=== PATIENT | male | born 1995 | race Two or more races ===

== ENCOUNTER → 2018-12-22 | Outpatient (REF) | payer MEDICAID, OTHER ==
[2018-12-22 15:47] LABS: APPEARANCE, URINE CLEAR (CLEAR); BACTERIA, URINE AUTO NEGATIVE (NEGATIVE); BILIRUBIN, URINE AUTO NEGATIVE (NEGATIVE); BLOOD, URINE BLOOD NEGATIVE (NEGATIVE); COLOR, URINE YELLOW (YELLOW); GLUCOSE, URINE (UA) AUTO NEGATIVE (NEGATIVE); KETONE, URINE AUTO NEGATIVE (NEGATIVE); LEUKOCYTE ESTERASE, URINE AUTO NEGATIVE (NEGATIVE); MUCUS, URINE SMALL (NEGATIVE); NITRITE, URINE AUTO NEGATIVE (NEGATIVE); PROTEIN, URINE AUTO NEGATIVE (NEGATIVE); RBC, URINE AUTO 4 /HPF (0-3); SPECIFIC GRAVITY URINE AUTO 1.017 (1.002-1.035); SQUAMOUS EPITHELIAL CELL UR AU 0 /HPF (0-6); UROBILINOGEN, URINE AUTO 0.2 mg/dL (0.0-2.0); WBC, URINE AUTO 0 /HPF (0-3)
[2018-12-22 15:56] LABS: ALBUMIN 4.4 GM/DL (3.2-5.2); ALT/SGPT 83 U/L (12-78); BILIRUBIN,TOTAL 1.1 MG/DL (0.2-1.0); BLOOD UREA NITROGEN 13 MG/DL (7-18); CARBON DIOXIDE LEVEL 31 MEQ/L (21-32); CHLORIDE LEVEL 101 MEQ/L (98-107); CREATININE FOR GFR 0.95 MG/DL (0.70-1.30); GLOMERULAR FILTRATION RATE > 60.0 (>60); GLUCOSE, FASTING 80 MG/DL (70-100); SODIUM LEVEL 138 MEQ/L (136-145); TOTAL PROTEIN 8.4 GM/DL (6.4-8.2)
[2018-12-23 11:25] LABS: HEPATITIS B SURFACE ANTIBODY POSITIVE (POSITIVE)
[2018-12-23 11:36] LABS: HEPATITIS B SURFACE ANTIGEN NEGATIVE (NEGATIVE)
[2018-12-23 12:05] LABS: HEPATITIS B CORE ANTIBODY IGM NEGATIVE (NEGATIVE)
[2018-12-28 00:08] LABS: % CD8 Pos Lymph 52.1 % (12.0-35.5); %CD4 Pos Lymphs 22.2 % (30.8-58.5); ABS Eosinophils 0.2 x10E3/uL (0.0-0.4); ABS Lymphs 1.7 x10E3/uL (0.7-3.1); ABS Monocytes 0.4 x10E3/uL (0.1-0.9); ABS Neutophils 5.6 x10E3/uL (1.4-7.0); Abs CD4 Helper 377 /uL (359-1519); Abs CD8 Suppres 886 /uL (109-897); CD4/CD8 Ratio 0.43 (0.92-3.72); Eosinophils 3 % (Not Estab.); HCT 48.7 % (37.5-51.0); HEPATITIS A IgG TOTAL Positive (Negative); HEPATITIS C VIRUS GENOTYPE 1b (.); HGB 16.4 g/dL (13.0-17.7); HSV TYPE II IgG SPECIFIC 6.82 index (0.00-0.90); Immature Grans 0 % (Not Estab.); Lymphocytes 21 % (Not Estab.); MCH 31.3 pg (26.6-33.0); MCHC 33.7 g/dL (31.5-35.7); MCV 93 fL (79-97); Monocytes 5 % (Not Estab.); Neutrophils 71 % (Not Estab.); Platelets 319 x10E3/uL (150-450); RBC 5.24 x10E6/uL (4.14-5.80); RDW 13.7 % (12.3-15.4); WBC 7.9 x10E3/uL (3.4-10.8)
== END ==
LOC: M SFHCPLAZ 13:04
PROVIDERS: ATTEND Internal Medicine Infectious Disease
DX: B20 Human immunodeficiency virus [HIV] disease (principal); B18.2 Chronic viral hepatitis C

== ENCOUNTER → 2019-01-16 | Outpatient (REF) | payer OTHER, MEDICAID ==
[2019-01-16 14:46] LABS: ALBUMIN 4.2 GM/DL (3.2-5.2); ALT/SGPT 109 U/L (12-78); BILIRUBIN,TOTAL 0.5 MG/DL (0.2-1.0); BLOOD UREA NITROGEN 17 MG/DL (7-18); CALCIUM LEVEL 9.5 MG/DL (8.5-10.1); CARBON DIOXIDE LEVEL 31 MEQ/L (21-32); CHLORIDE LEVEL 103 MEQ/L (98-107); CREATININE FOR GFR 0.97 MG/DL (0.70-1.30); GLOMERULAR FILTRATION RATE > 60.0 (>60); GLUCOSE, FASTING 85 MG/DL (70-100); POTASSIUM SERUM 4.3 MEQ/L (3.5-5.1); SODIUM LEVEL 138 MEQ/L (136-145); TOTAL PROTEIN 8.4 GM/DL (6.4-8.2)
[2019-01-19 00:16] LABS: % CD8 Pos Lymph 49.6 % (12.0-35.5); %CD4 Pos Lymphs 23.9 % (30.8-58.5); ABS Eosinophils 0.2 x10E3/uL (0.0-0.4); ABS Lymphs 2.4 x10E3/uL (0.7-3.1); ABS Monocytes 0.5 x10E3/uL (0.1-0.9); ABS Neutophils 1.3 x10E3/uL (1.4-7.0); Abs CD4 Helper 574 /uL (359-1519); Abs CD8 Suppres 1190 /uL (109-897); CD4/CD8 Ratio 0.48 (0.92-3.72); Eosinophils 4 % (Not Estab.); HCT 46.3 % (37.5-51.0); HEPATITIS C QUANTITATION 321420 IU/mL (.); HGB 16.8 g/dL (13.0-17.7); HIV-1 RNA PCR QUANT 2 LC550285 40 copies/mL (.); HIV-1 RNA PCR QUANT 3 LC550285 1.602 (.); Immature Grans 0 % (Not Estab.); Lymphocytes 55 % (Not Estab.); MCH 31.3 pg (26.6-33.0); MCHC 36.3 g/dL (31.5-35.7); MCV 86 fL (79-97); Monocytes 11 % (Not Estab.); Neutrophils 30 % (Not Estab.); Platelets 306 x10E3/uL (150-450); RBC 5.36 x10E6/uL (4.14-5.80); RDW 14.3 % (12.3-15.4); WBC 4.3 x10E3/uL (3.4-10.8)
== END ==
LOC: M SFHCPLAZ 13:18
PROVIDERS: ATTEND Internal Medicine Infectious Disease
DX: B20 Human immunodeficiency virus [HIV] disease (principal); B18.2 Chronic viral hepatitis C

== ENCOUNTER → 2019-03-16 | Outpatient (REF) | payer MEDICAID, OTHER ==
[2019-03-16 16:06] LABS: ALBUMIN 4.3 GM/DL (3.2-5.2); ALT/SGPT 115 U/L (12-78); BILIRUBIN,TOTAL 0.4 MG/DL (0.2-1.0); BLOOD UREA NITROGEN 16 MG/DL (7-18); CALCIUM LEVEL 8.7 MG/DL (8.5-10.1); CARBON DIOXIDE LEVEL 30 MEQ/L (21-32); CHLORIDE LEVEL 103 MEQ/L (98-107); CREATININE FOR GFR 0.96 MG/DL (0.70-1.30); GLOMERULAR FILTRATION RATE > 60.0 (>60); GLUCOSE, FASTING 81 MG/DL (70-100); POTASSIUM SERUM 4.2 MEQ/L (3.5-5.1); SODIUM LEVEL 138 MEQ/L (136-145); TOTAL PROTEIN 8.2 GM/DL (6.4-8.2)
[2019-03-21 00:10] LABS: %CD4 Pos Lymphs 26.2 % (30.8-58.5); ABS Eosinophils 0.1 x10E3/uL (0.0-0.4); ABS Lymphs 2.7 x10E3/uL (0.7-3.1); ABS Monocytes 0.6 x10E3/uL (0.1-0.9); ABS Neutophils 2.6 x10E3/uL (1.4-7.0); Abs CD4 Helper 707 /uL (359-1519); Abs CD8 Suppres 1215 /uL (109-897); CD4/CD8 Ratio 0.58 (0.92-3.72); Eosinophils 1 % (Not Estab.); HCT 49.8 % (37.5-51.0); HGB 17.9 g/dL (13.0-17.7); HIV-1 RNA PCR QUANT 2 LC550285 <20 copies/mL (.); Immature Grans 0 % (Not Estab.); Lymphocytes 45 % (Not Estab.); MCH 32.3 pg (26.6-33.0); MCHC 35.9 g/dL (31.5-35.7); MCV 90 fL (79-97); Monocytes 11 % (Not Estab.); Neutrophils 43 % (Not Estab.); Platelets 280 x10E3/uL (150-450); RBC 5.54 x10E6/uL (4.14-5.80); RDW 14.1 % (12.3-15.4); WBC 5.9 x10E3/uL (3.4-10.8)
== END ==
LOC: M SFHCPLAZ 14:30
PROVIDERS: ATTEND Internal Medicine Infectious Disease
DX: B20 Human immunodeficiency virus [HIV] disease (principal)

== ENCOUNTER → 2019-04-18 | Outpatient (REF) | payer OTHER, MEDICAID ==
[2019-04-18 16:03] LABS: ALBUMIN 4.1 GM/DL (3.2-5.2); ALT/SGPT 22 U/L (12-78); BILIRUBIN,DIRECT < 0.1 MG/DL (0.0-0.2); BILIRUBIN,TOTAL 0.3 MG/DL (0.2-1.0); TOTAL PROTEIN 8.1 GM/DL (6.4-8.2)
== END ==
LOC: M SFHCPLAZ 12:52
PROVIDERS: ATTEND Internal Medicine Infectious Disease
DX: B18.2 Chronic viral hepatitis C (principal); A53.9 Syphilis, unspecified

== ENCOUNTER → 2019-06-13 | Outpatient (REF) | payer OTHER, MEDICAID ==
[2019-06-16 00:07] LABS: HIV-1 RNA PCR QUANT 2 LC550285 <20 copies/mL (.); RPR Reactive (Non Reactive)
== END ==
LOC: M SFHCPLAZ 13:13
PROVIDERS: ATTEND Internal Medicine Infectious Disease
DX: B20 Human immunodeficiency virus [HIV] disease (principal)

== ENCOUNTER → 2019-09-12 | Outpatient (REF) | payer OTHER, MEDICAID ==
[2019-09-12 15:44] LABS: ALBUMIN 4.3 GM/DL (3.2-5.2); ALT/SGPT 25 U/L (12-78); BILIRUBIN,TOTAL 0.8 MG/DL (0.2-1.0); BLOOD UREA NITROGEN 20 MG/DL (7-18); CALCIUM LEVEL 9.2 MG/DL (8.5-10.1); CARBON DIOXIDE LEVEL 31 MEQ/L (21-32); CHLORIDE LEVEL 102 MEQ/L (98-107); CREATININE FOR GFR 1.06 MG/DL (0.70-1.30); GLOMERULAR FILTRATION RATE > 60.0 (>60); GLUCOSE, FASTING 81 MG/DL (70-100); POTASSIUM SERUM 3.9 MEQ/L (3.5-5.1); SODIUM LEVEL 137 MEQ/L (136-145); TOTAL PROTEIN 7.8 GM/DL (6.4-8.2)
[2019-09-14 16:08] LABS: % CD8 Pos Lymph 41.3 % (12.0-35.5); %CD4 Pos Lymphs 31.1 % (30.8-58.5); ABS Eosinophils 0.1 x10E3/uL (0.0-0.4); ABS Lymphs 2.7 x10E3/uL (0.7-3.1); ABS Monocytes 0.4 x10E3/uL (0.1-0.9); ABS Neutophils 1.7 x10E3/uL (1.4-7.0); Abs CD4 Helper 840 /uL (359-1519); Abs CD8 Suppres 1115 /uL (109-897); CD4/CD8 Ratio 0.75 (0.92-3.72); Eosinophils 2 % (Not Estab.); HGB 17.5 g/dL (13.0-17.7); Immature Grans 0 % (Not Estab.); Lymphocytes 55 % (Not Estab.); MCH 32.5 pg (26.6-33.0); MCHC 35.7 g/dL (31.5-35.7); MCV 91 fL (79-97); Monocytes 9 % (Not Estab.); Neutrophils 34 % (Not Estab.); Platelets 282 x10E3/uL (150-450); RBC 5.38 x10E6/uL (4.14-5.80); RDW 13.6 % (11.6-15.4); RPR Reactive (Non Reactive)
[2019-09-15 02:07] LABS: HEPATITIS C QUANTITATION HCV Not Detected IU/mL (.); HIV-1 RNA PCR QUANT 2 LC550285 <20 copies/mL (.)
== END ==
LOC: M SFHCPLAZ 11:51
PROVIDERS: ATTEND Internal Medicine Infectious Disease
DX: B18.2 Chronic viral hepatitis C (principal); B20 Human immunodeficiency virus [HIV] disease; A53.9 Syphilis, unspecified

== ENCOUNTER → 2020-02-08 | Outpatient (REF) | payer OTHER, MEDICAID ==
[2020-02-08 10:27] LABS: ALBUMIN 4.2 GM/DL (3.2-5.2); ALT/SGPT 19 U/L (12-78); BILIRUBIN,TOTAL 0.5 MG/DL (0.2-1.0); BLOOD UREA NITROGEN 21 MG/DL (7-18); CALCIUM LEVEL 9.2 MG/DL (8.5-10.1); CARBON DIOXIDE LEVEL 32 MEQ/L (21-32); CHLORIDE LEVEL 103 MEQ/L (98-107); CREATININE FOR GFR 0.97 MG/DL (0.70-1.30); GLOMERULAR FILTRATION RATE > 60.0 (>60); GLUCOSE, FASTING 66 MG/DL (70-100); SODIUM LEVEL 139 MEQ/L (136-145); TOTAL PROTEIN 7.4 GM/DL (6.4-8.2)
[2020-02-11 17:07] LABS: % CD8 Pos Lymph 39.4 % (12.0-35.5); %CD4 Pos Lymphs 29.9 % (30.8-58.5); ABS Eosinophils 0.1 x10E3/uL (0.0-0.4); ABS Monocytes 0.4 x10E3/uL (0.1-0.9); ABS Neutophils 1.9 x10E3/uL (1.4-7.0); Abs CD4 Helper 598 /uL (359-1519); Abs CD8 Suppres 788 /uL (109-897); CD4/CD8 Ratio 0.76 (0.92-3.72); Eosinophils 3 % (Not Estab.); HCT 49.4 % (37.5-51.0); HEPATITIS C QUANTITATION HCV Not Detected IU/mL (.); HIV-1 RNA PCR QUANT 2 LC550285 <20 copies/mL (.); Immature Grans 0 % (Not Estab.); Lymphocytes 45 % (Not Estab.); MCHC 34.4 g/dL (31.5-35.7); MCV 93 fL (79-97); Monocytes 10 % (Not Estab.); Neutrophils 42 % (Not Estab.); Platelets 274 x10E3/uL (150-450); RBC 5.32 x10E6/uL (4.14-5.80); RDW 13.4 % (11.6-15.4); RPR Reactive (Non Reactive); WBC 4.4 x10E3/uL (3.4-10.8)
== END ==
LOC: M SFHCPLAZ 08:15
PROVIDERS: ATTEND Internal Medicine Infectious Disease
DX: B20 Human immunodeficiency virus [HIV] disease (principal); B18.2 Chronic viral hepatitis C; A53.9 Syphilis, unspecified

== ENCOUNTER → 2020-06-06 | Outpatient (REF) | payer OTHER, MEDICAID ==
[2020-06-06 11:05] LABS: ALBUMIN 4.3 GM/DL (3.2-5.2); ALT/SGPT 23 U/L (12-78); BILIRUBIN,TOTAL 0.4 MG/DL (0.2-1.0); BLOOD UREA NITROGEN 15 MG/DL (7-18); CALCIUM LEVEL 9.2 MG/DL (8.5-10.1); CARBON DIOXIDE LEVEL 33 MEQ/L (21-32); CHLORIDE LEVEL 105 MEQ/L (98-107); CREATININE FOR GFR 1.03 MG/DL (0.70-1.30); GLOMERULAR FILTRATION RATE > 60.0 (>60); GLUCOSE, FASTING 92 MG/DL (70-100); POTASSIUM SERUM 4.3 MEQ/L (3.5-5.1); SODIUM LEVEL 139 MEQ/L (136-145); TOTAL PROTEIN 7.4 GM/DL (6.4-8.2)
[2020-06-08 23:07] LABS: %CD4 Pos Lymphs 31.3 % (30.8-58.5); ABS Eosinophils 0.1 x10E3/uL (0.0-0.4); ABS Lymphs 1.5 x10E3/uL (0.7-3.1); ABS Monocytes 0.7 x10E3/uL (0.1-0.9); Abs CD4 Helper 470 /uL (359-1519); Abs CD8 Suppres 540 /uL (109-897); CD4/CD8 Ratio 0.87 (0.92-3.72); Eosinophils 2 % (Not Estab.); HCT 48.6 % (37.5-51.0); HGB 16.8 g/dL (13.0-17.7); HIV-1 RNA PCR QUANT 2 LC550285 30 copies/mL (.); HIV-1 RNA PCR QUANT 3 LC550285 1.477 (.); Immature Grans 0 % (Not Estab.); Lymphocytes 35 % (Not Estab.); MCH 32.1 pg (26.6-33.0); MCHC 34.6 g/dL (31.5-35.7); MCV 93 fL (79-97); Monocytes 16 % (Not Estab.); Neutrophils 47 % (Not Estab.); Platelets 252 x10E3/uL (150-450); RBC 5.24 x10E6/uL (4.14-5.80); RDW 13.5 % (11.6-15.4); RPR Reactive (Non Reactive); WBC 4.3 x10E3/uL (3.4-10.8)
== END ==
LOC: M SFHCPLAZ 08:15
PROVIDERS: ATTEND Internal Medicine Infectious Disease
DX: B20 Human immunodeficiency virus [HIV] disease (principal)

== ENCOUNTER → 2020-12-09 | Outpatient (CLI) | payer MEDICAID ==
[2020-12-09 15:32] LABS: ALBUMIN 4.1 GM/DL (3.2-5.2); ALT/SGPT 26 U/L (12-78); BILIRUBIN,TOTAL 0.5 MG/DL (0.2-1.0); BLOOD UREA NITROGEN 14 MG/DL (7-18); CALCIUM LEVEL 9.3 MG/DL (8.5-10.1); CARBON DIOXIDE LEVEL 31 MEQ/L (21-32); CHLORIDE LEVEL 105 MEQ/L (98-107); CREATININE FOR GFR 0.83 MG/DL (0.70-1.30); GLOMERULAR FILTRATION RATE > 60.0 (>60); GLUCOSE, FASTING 74 MG/DL (70-100); POTASSIUM SERUM 4.3 MEQ/L (3.5-5.1); SODIUM LEVEL 140 MEQ/L (136-145); TOTAL PROTEIN 7.3 GM/DL (6.4-8.2)
== END ==
LOC: M PLALAB 11:06
PROVIDERS: ATTEND Internal Medicine Infectious Disease
DX: B20 Human immunodeficiency virus [HIV] disease (principal)

== ENCOUNTER → 2021-06-09 | Outpatient (CLI) | payer MEDICAID ==
[2021-06-09 13:41] LABS: ALBUMIN 4.3 GM/DL (3.2-5.2); ALT/SGPT 25 U/L (12-78); BILIRUBIN,TOTAL 0.7 MG/DL (0.2-1.0); BLOOD UREA NITROGEN 19 MG/DL (7-18); CALCIUM LEVEL 9.2 MG/DL (8.5-10.1); CARBON DIOXIDE LEVEL 31 MEQ/L (21-32); CHLORIDE LEVEL 107 MEQ/L (98-107); CHOLESTEROL LEVEL 214 MG/DL (<200); CHOLESTEROL RISK RATIO 3.101 (<5); CREATININE FOR GFR 1.03 MG/DL (0.70-1.30); GLOMERULAR FILTRATION RATE > 60.0 (>60); GLUCOSE, FASTING 83 MG/DL (70-100); HDL CHOLESTEROL 69 MG/DL (>40); LDL CHOLESTEROL 122 MG/DL (<100); NON-HDL-C 145 MG/DL; POTASSIUM SERUM 4.8 MEQ/L (3.5-5.1); SODIUM LEVEL 142 MEQ/L (136-145); TOTAL PROTEIN 7.1 GM/DL (6.4-8.2); TRIGLYCERIDES LEVEL 116 MG/DL (<150)
[2021-06-10 16:09] LABS: % CD8 Pos Lymph 35.4 % (12.0-35.5); %CD4 Pos Lymphs 29.3 % (30.8-58.5); ABS Eosinophils 0.1 x10E3/uL (0.0-0.4); ABS Lymphs 1.9 x10E3/uL (0.7-3.1); ABS Monocytes 0.4 x10E3/uL (0.1-0.9); ABS Neutophils 1.5 x10E3/uL (1.4-7.0); Abs CD4 Helper 557 /uL (359-1519); Abs CD8 Suppres 673 /uL (109-897); CD4/CD8 Ratio 0.83 (0.92-3.72); Eosinophils 3 % (Not Estab.); HCT 44.9 % (37.5-51.0); HGB 16.1 g/dL (13.0-17.7); HIV-1 RNA PCR QUANT 2 LC550285 20 copies/mL (.); HIV-1 RNA PCR QUANT 3 LC550285 1.301 (.); Immature Grans 0 % (Not Estab.); Lymphocytes 49 % (Not Estab.); MCH 32.9 pg (26.6-33.0); MCHC 35.9 g/dL (31.5-35.7); MCV 92 fL (79-97); Monocytes 10 % (Not Estab.); Neutrophils 38 % (Not Estab.); Platelets 263 x10E3/uL (150-450); RBC 4.89 x10E6/uL (4.14-5.80); RDW 12.8 % (11.6-15.4); WBC 3.8 x10E3/uL (3.4-10.8)
== END ==
LOC: M PLALAB 11:15
PROVIDERS: ATTEND Internal Medicine Infectious Disease
DX: B20 Human immunodeficiency virus [HIV] disease (principal); Z13.220 Encounter for screening for lipoid disorders

== ENCOUNTER → 2021-12-15 | Outpatient (CLI) | payer BC, MEDICAID ==
[2021-12-15 16:52] LABS: ALBUMIN 4.3 GM/DL (3.2-5.2); ALT/SGPT 22 U/L (12-78); BILIRUBIN,TOTAL 0.4 MG/DL (0.2-1.0); BLOOD UREA NITROGEN 15 MG/DL (7-18); CALCIUM LEVEL 9.2 MG/DL (8.5-10.1); CARBON DIOXIDE LEVEL 29 MEQ/L (21-32); CHLORIDE LEVEL 106 MEQ/L (98-107); GLOMERULAR FILTRATION RATE > 60.0 (>60); GLUCOSE, FASTING 106 MG/DL (70-100); POTASSIUM SERUM 4.3 MEQ/L (3.5-5.1); SODIUM LEVEL 140 MEQ/L (136-145); TOTAL PROTEIN 7.5 GM/DL (6.4-8.2)
[2021-12-18 07:07] LABS: % CD8 Pos Lymph 35.1 % (12.0-35.5); %CD4 Pos Lymphs 31.7 % (30.8-58.5); ABS Eosinophils 0.1 x10E3/uL (0.0-0.4); ABS Monocytes 0.3 x10E3/uL (0.1-0.9); ABS Neutophils 1.7 x10E3/uL (1.4-7.0); Abs CD4 Helper 634 /uL (359-1519); Abs CD8 Suppres 702 /uL (109-897); Eosinophils 1 % (Not Estab.); HCT 47.7 % (37.5-51.0); HGB 16.7 g/dL (13.0-17.7); HIV-1 RNA PCR QUANT 2 LC550285 <20 copies/mL (.); Immature Grans 0 % (Not Estab.); Lymphocytes 49 % (Not Estab.); MCH 33.1 pg (26.6-33.0); MCV 95 fL (79-97); Monocytes 8 % (Not Estab.); Neutrophils 42 % (Not Estab.); Platelets 280 x10E3/uL (150-450); RBC 5.05 x10E6/uL (4.14-5.80); RDW 12.6 % (11.6-15.4); WBC 4.2 x10E3/uL (3.4-10.8)
== END ==
LOC: M PLALAB 14:18
PROVIDERS: ATTEND Internal Medicine Infectious Disease
DX: B20 Human immunodeficiency virus [HIV] disease (principal)

== ENCOUNTER → 2022-06-22 | Outpatient (CLI) | payer BC ==
[2022-06-22 15:31] LABS: ALBUMIN 4.3 G/DL (3.2-5.2); ALKALINE PHOSPHATASE 73 U/L (46-116); ALT/SGPT 18 U/L (7.0-40); AST/SGOT 15 U/L (<34); BILIRUBIN,TOTAL 0.7 MG/DL (0.3-1.2); BLOOD UREA NITROGEN 15 MG/DL (9-23); CALCIUM LEVEL 9.4 MG/DL (8.5-10.1); CARBON DIOXIDE LEVEL 31 MMOL/L (20-31); CHLORIDE LEVEL 105 MMOL/L (98-107); CREATININE FOR GFR 1.04 MG/DL (0.70-1.30); GLOMERULAR FILTRATION RATE > 60.0 (>60); GLUCOSE, FASTING 90 MG/DL (60-100); POTASSIUM SERUM 4.6 MMOL/L (3.5-5.1); SODIUM LEVEL 141 MMOL/L (136-145); TOTAL PROTEIN 7.1 G/DL (5.7-8.2)
[2022-06-22 15:34] LABS: HEMOGLOBIN A1c 5.1 % (4.0-6.0)
== END ==
LOC: M PLALAB 12:34
PROVIDERS: ATTEND Internal Medicine Infectious Disease
DX: B20 Human immunodeficiency virus [HIV] disease (principal); Z13.1 Encounter for screening for diabetes mellitus; Z53.9 Procedure and treatment not carried out, unspecified reason

== ENCOUNTER → 2023-07-12 | Outpatient (CLI) | payer BC ==
[2023-07-12 12:59] LABS: ALKALINE PHOSPHATASE 69 U/L (46-116); ALT/SGPT 24 U/L (7.0-40); AST/SGOT 16 U/L (<34); BILIRUBIN,TOTAL 0.7 MG/DL (0.3-1.2); BLOOD UREA NITROGEN 21 MG/DL (9-23); CALCIUM LEVEL 9.1 MG/DL (8.5-10.1); CARBON DIOXIDE LEVEL 33 MMOL/L (20-31); CHLORIDE LEVEL 105 MMOL/L (98-107); CREATININE FOR GFR 1.26 MG/DL (0.70-1.30); GLOMERULAR FILTRATION RATE > 60.0 (>60); GLUCOSE, FASTING 83 MG/DL (60-100); POTASSIUM SERUM 4.5 MMOL/L (3.5-5.1); SODIUM LEVEL 141 MMOL/L (136-145); TOTAL PROTEIN 6.8 G/DL (5.7-8.2)
[2023-07-14 04:07] LABS: % CD8 Pos Lymph 32.7 % (12.0-35.5); ABS Eosinophils 0.1 x10E3/uL (0.0-0.4); ABS Lymphs 1.7 x10E3/uL (0.7-3.1); ABS Monocytes 0.3 x10E3/uL (0.1-0.9); ABS Neutophils 1.8 x10E3/uL (1.4-7.0); Abs CD4 Helper 510 /uL (359-1519); Abs CD8 Suppres 556 /uL (109-897); CD4/CD8 Ratio 0.92 (0.92-3.72); Eosinophils 3 % (Not Estab.); HCT 46.4 % (37.5-51.0); HEPATITIS C QUANTITATION HCV Not Detected IU/mL (.); HGB 16.3 g/dL (13.0-17.7); HIV-1 RNA PCR QUANT 2 LC550285 <20 copies/mL (.); Immature Grans 0 % (Not Estab.); Lymphocytes 43 % (Not Estab.); MCH 32.6 pg (26.6-33.0); MCHC 35.1 g/dL (31.5-35.7); MCV 93 fL (79-97); Monocytes 9 % (Not Estab.); Neutrophils 44 % (Not Estab.); Platelets 251 x10E3/uL (150-450); RDW 12.8 % (11.6-15.4); RPR Reactive (Non Reactive)
== END ==
LOC: M PLALAB 09:01
PROVIDERS: ATTEND Internal Medicine Infectious Disease
DX: B20 Human immunodeficiency virus [HIV] disease (principal)

== ENCOUNTER → 2023-12-28 | Outpatient (CLI) | payer OTHER ==
[2023-12-28 14:39] LABS: ALBUMIN 3.9 G/DL (3.2-5.2); ALKALINE PHOSPHATASE 79 U/L (46-116); ALT/SGPT 40 U/L (7.0-40); AST/SGOT 22 U/L (<34); BILIRUBIN,TOTAL 0.5 MG/DL (0.3-1.2); BLOOD UREA NITROGEN 21 MG/DL (9-23); CALCIUM LEVEL 9.2 MG/DL (8.5-10.1); CARBON DIOXIDE LEVEL 32 MMOL/L (20-31); CHLORIDE LEVEL 105 MMOL/L (98-107); CREATININE FOR GFR 1.06 MG/DL (0.70-1.30); GLOMERULAR FILTRATION RATE > 60.0 (>60); GLUCOSE, FASTING 92 MG/DL (60-100); POTASSIUM SERUM 4.1 MMOL/L (3.5-5.1); SODIUM LEVEL 140 MMOL/L (136-145)
[2023-12-29 14:18] LABS: % CD4+ LYMPHS 33.7 % (30.8-58.5); ABSOLUTE CD4 HELPER 539 /uL (359-1519); BASOPHILS 0 % (Not Estab.); EOSINOPHILS 3 % (Not Estab.); EOSINOPHILS ABSOLUTE 0.2 x10E3/uL (0.0-0.4); HCT 48.2 % (37.5-51.0); HGB 16.5 g/dL (13.0-17.7); LYMPHOCYTES 28 % (Not Estab.); LYMPHOCYTES ABSOLUTE 1.6 x10E3/uL (0.7-3.1); MCH 32.7 pg (26.6-33.0); MCHC 34.2 g/dL (31.5-35.7); MCV 95 fL (79-97); MONOCYTES 13 % (Not Estab.); MONOCYTES ABSOLUTE 0.8 x10E3/uL (0.1-0.9); NEUTROPHILS 56 % (Not Estab.); NEUTROPHILS ABSOLUTE 3.2 x10E3/uL (1.4-7.0); PLT 246 x10E3/uL (150-450); RBC 5.05 x10E6/uL (4.14-5.80); WBC 5.9 x10E3/uL (3.4-10.8)
[2023-12-30 12:17] LABS: HIV-1 RNA PCR QUANT 2 <20 DETECTED copies/mL (NOT DETECTED); HIV-1 RNA PCR QUANT 3 <1.30 DETECTED (NOT DETECTED)
== END ==
LOC: M PLALAB 09:22
PROVIDERS: ATTEND Internal Medicine Infectious Disease
DX: B20 Human immunodeficiency virus [HIV] disease (principal)

== ENCOUNTER → 2024-06-27 | Outpatient (CLI) | payer OTHER ==
[2024-06-27 15:06] LABS: ALKALINE PHOSPHATASE 69 U/L (40-129); ALT/SGPT 23 U/L (7.0-40); AST/SGOT 17 U/L (<34); BILIRUBIN,TOTAL 0.5 MG/DL (0.3-1.2); BLOOD UREA NITROGEN 15 MG/DL (9-23); CALCIUM LEVEL 9.1 MG/DL (8.5-10.1); CARBON DIOXIDE LEVEL 31 MMOL/L (20-31); CHLORIDE LEVEL 107 MMOL/L (98-107); CHOLESTEROL LEVEL 191 MG/DL (<200); CHOLESTEROL RISK RATIO 2.67 (<5); CREATININE FOR GFR 1.17 MG/DL (0.70-1.30); GLOMERULAR FILTRATION RATE > 60.0 (>60); GLUCOSE, FASTING 62 MG/DL (60-100); HDL CHOLESTEROL 71.4 MG/DL (>40); LDL CHOLESTEROL 105.2 MG/DL (<100); NON-HDL-C 119.6 MG/DL; POTASSIUM SERUM 4.2 MMOL/L (3.5-5.1); SODIUM LEVEL 143 MMOL/L (136-145); TOTAL PROTEIN 6.8 G/DL (5.7-8.2); TRIGLYCERIDES LEVEL 72 MG/DL (<150)
[2024-06-28 11:42] LABS: HIV-1 RNA PCR QUANT 2 NOT DETECTED copies/mL (NOT DETECTED); HIV-1 RNA PCR QUANT 3 NOT DETECTED (NOT DETECTED)
[2024-06-30 01:08] LABS: % CD4 33 % (30-61); %CD8 33 % (12-42); ABSOLUTE CD4 CELLS 391 cells/uL (490-1740); ABSOLUTE CD8 CELLS 388 cells/uL (180-1170); ABSOLUTE LYMPHOCYTES 1166 cells/uL (850-3900); CD4 CD8 RATIO 1.01 (0.86-5.00)
== END ==
LOC: M PLALAB 10:11
PROVIDERS: ATTEND Internal Medicine Infectious Disease
DX: B20 Human immunodeficiency virus [HIV] disease (principal); E78.00 Pure hypercholesterolemia, unspecified

== ENCOUNTER → 2025-01-23 | Outpatient (CLI) | payer OTHER ==
[2025-01-23 14:31] LABS: ALT/SGPT 20.0 U/L (7.0-40); AST/SGOT 22.0 U/L (<34); CALCIUM LEVEL 9.0 MG/DL (8.5-10.1); CARBON DIOXIDE LEVEL 30.0 MMOL/L (20-31); CHLORIDE LEVEL 103.0 MMOL/L (98-107); CREATININE FOR GFR 1.19 MG/DL (0.70-1.30); GLOMERULAR FILTRATION RATE 84.3 (>60); POTASSIUM SERUM 4.3 MMOL/L (3.5-5.1); SODIUM LEVEL 141.0 MMOL/L (136-145)
[2025-01-25 09:42] LABS: RPR REACTIVE (NON-REACTIVE)
[2025-01-25 15:12] LABS: RPR TITER 1:1 (<1:1)
[2025-01-26 00:57] LABS: % CD4 30 % (30-61); %CD8 32 % (12-42); ABSOLUTE CD4 CELLS 547 cells/uL (490-1740); ABSOLUTE CD8 CELLS 588 cells/uL (180-1170); ABSOLUTE LYMPHOCYTES 1818 cells/uL (850-3900); CD4 CD8 RATIO 0.93 (0.86-5.00)
[2025-01-26 11:03] LABS: HIV-1 RNA PCR QUANT 2 NOT DETECTED copies/mL (NOT DETECTED); HIV-1 RNA PCR QUANT 3 NOT DETECTED (NOT DETECTED)
[2025-01-26 13:07] LABS: TREPONEMA PALLIDUM ANTIBODIES POSITIVE (NEGATIVE)
== END ==
LOC: M PLALAB 11:35
PROVIDERS: ATTEND Internal Medicine Infectious Disease
DX: B20 Human immunodeficiency virus [HIV] disease (principal); A53.9 Syphilis, unspecified